=== PATIENT | male | born 1985 | race Caucasian/White ===

== ENCOUNTER 2017-10-24 20:52 | Emergency (ER) | payer BC, SELFPAY ==
[2017-10-24 20:55] VITALS: BP 157/89; PULSE 83; RESP 17; TEMP 36.8; O2SAT 100; BMI 35.9
--- NOTE | 2017-10-24 21:19 | EKG12_ITS ---
Test Reason : CHEST PAIN Blood Pressure : / mmHG Vent. Rate : 077 BPM Atrial Rate : 077 BPM P-R Int : 146 ms QRS Dur : 092 ms QT Int : 372 ms P-R-T Axes : 150 007 072 degrees QTc Int : 420 ms Unusual P axis, possible ectopic atrial rhythm Low voltage QRS (limb leads) Poor R wave progression Abnormal ECG Confirmed by DIMAS PATEL, NGOZI ([id number]), desk editor SELIN TOTH ([id number]) on 10/28/2017 2:07:30 PM Referred By: BREANNE Confirmed By:NGOZI COCHRAN MD
--- NOTE | 2017-10-24 21:19 | RAD_ITS ---
STUDY: X-RAY CHEST REASON FOR EXAM: Male, 32 years old. Chest pain TECHNIQUE: Single AP portable view of the chest. COMPARISON: None. FINDINGS: clinical research monitor leads are present. The lungs are clear and expanded. There is no demonstrated pleural abnormality. Normal size heart. Normal mediastinum and bryan. Normal visualized pulmonary arteries. Normal visualized aortic arch and descending thoracic aorta. Normal visualized thoracic spine. Normal visualized ribs, clavicles, and shoulders. There is no demonstrated abnormality of the visualized soft tissue structures of the upper abdomen. RAD/Chest 1 View (Portable) IMPRESSION: Normal x-ray examination of the chest. Electronically Signed: Jesus Elizabeth MD at 21:59 EDT , Service support ,
--- NOTE | 2017-10-24 21:24 | ED.RN ---
NO OLD EKG'S IN MUSE
[2017-10-24] MEDS: Aspirin 81 MG TAB.CHEW 324 MG PO (21:33)
[2017-10-24 21:44] VITALS: BP 128/76; PULSE 81; RESP 14; O2SAT 100
[2017-10-24 22:03] LABS: Absolute Lymphocyte Count 2.02 X10^3/ul (0.83-4.51); Absolute Neutrophil Count 4.1 X10^3/uL (2.0-7.7); Basophil# 0.01 X10^3/uL; Basophil% 0.2 % (0-1); Eosinophil# 0.12 X10^3/uL; Eosinophils% 1.8 % (0-5); Hematocrit 48.9 % (40-54); Hemoglobin 16.9 g/dl (13.0-16.5); Lymphocyte # 2.02 X10^3/ul (4.0); Lymphocyte % 30.8 % (19-41); Mean Corp Hgb Conc 34.6 g/gl (32-36); Mean Corpuscular Hgb 29.1 pg (27.0-32.0); Mean Corpuscular Volume 84.3 fL (80-94); Mean Platelet Vol. 9.4 fl (6.2-12.0); Monocyte# 0.33 X10^3/uL; Neutrophil # 4.08 X10^3/uL (2.7-7.7); Neutrophil % 62.2 % (47-70); POSITIVE COUNT NO; POSITIVE DIFFERENTIAL NO; POSITIVE MORPHOLOGY NO; Platelet Count 230 K/mm3 (150-450); RBC Distribution Width CV 13.2 % (11.6-14.6); RBC Distribution Width SD 39.9 fl (35.1-43.9); White Blood Count 6.6 K/mm3 (4.4-11.0)
[2017-10-24 22:15] LABS: Anion Gap 5 (5-15); BUN 12 mg/dL (7-18); BUN/Creat Ratio 11.3 RATIO (10-20); Calcium,Total 9.7 mg/dL (8.5-10.1); Chloride 104 mmol/L (98-107); Creatinine, Serum 1.06 mg/dL (0.70-1.30); EST Glomerular Filtration Rate 86 mL/min (>60); Est Glom Filt Rate - Afr Amer 104 mL/min (>60); Estimated Creatinine Clearance 107.54 ml/min; Glucose 100 mg/dL (74-106); Potassium 3.5 mmol/L (3.5-5.1); Sodium Level 140 mmol/L (136-145)
[2017-10-24 22:20] LABS: D-Dimer Quantitative (DVT/PE) < 0.27 FEU/ug/m (0.27-0.49)
[2017-10-24 22:43] VITALS: BP 130/77
--- NOTE | 2017-10-24 23:38 | ED.VISSUMM ---
- ER Visit Summary Date of Service: 10/24/17 Chief Complaint: Chest pain History of Present Illness: The patient is a 32 M presenting with chest pain which started around 6:00 PM. Patient was at work when this started. He denies shortness of breath. He had associated nausea. He states the pain lasted approximately 10 minutes. He denies any recent travel or surgeries. He has a grandfather who had a heart attack in his 50s. He has a history of hypertension. No other coronary artery disease risk factors. No PE/DVT risk factors. He is not a smoker. He is pain-free on arrival to the ED. Physical Examination: Vitals are stable. Patient is afebrile. Alert no acute distress. HEENT exam is unremarkable. Neck is supple. Lungs are clear and equal bilaterally. Heart is regular rate and rhythm. Abdomen is soft nontender nondistended. Extremities are unremarkable. Skin is warm and dry. No focal neurologic deficit. Remainder of exam is unremarkable. Emergency Department Course and Treatment: Patient was given aspirin on arrival. EKG shows atrial rhythm rate is 77 with no acute ischemic changes. Chest x-ray shows no acute process. CBC, chemistries are unremarkable. D-dimer is negative. Troponin is negative. Repeat EKG is sinus rate of 69 with no acute ischemic changes. Patient remains pain-free in the emergency department. Delta troponin will be obtained and checked out to the oncoming physician. Disposition: Pending delta troponin Impression: Chest pain This note was generated with [employer] dictation software. It may contain incorrect words, spelling, and punctuation that were not noted in review of the chart prior to signing ED Disposition - Plan for ED Patient: Chief Complaint: Chest Pain Instructions: ED Chest Pain Atypical Unkn Cause Referrals: Jef Barragan MD [STAFF PHYSICIAN] - Care Physician,No Primary [Primary Care Provider] -
--- NOTE | 2017-10-24 23:41 | EKG12_ITS ---
Test Reason : REPEAT CP Blood Pressure : / mmHG Vent. Rate : 069 BPM Atrial Rate : 069 BPM P-R Int : 154 ms QRS Dur : 090 ms QT Int : 388 ms P-R-T Axes : 068 026 034 degrees QTc Int : 415 ms Sinus rhythm with occasional Premature ventricular complexes Otherwise normal ECG Confirmed by DIMAS PATEL, NGOZI ([id number]), multimedia editor SELIN TOTH ([id number]) on 10/28/2017 2:16:26 PM Referred By: DESIRE Confirmed By:NGOZI COCHRAN MD
--- NOTE | 2017-10-24 23:43 | ED.DCSUM_ITS ---
- ER Visit Summary Date of Service: 10/24/17 Chief Complaint: Chest pain History of Present Illness: The patient is a 32 M presenting with chest pain which started around 6:00 PM. Patient was at work when this started. He denies shortness of breath. He had associated nausea. He states the pain lasted approximately 10 minutes. He denies any recent travel or surgeries. He has a grandfather who had a heart attack in his 50s. He has a history of hypertension. No other coronary artery disease risk factors. No PE/DVT risk factors. He is not a smoker. He is pain-free on arrival to the ED. Physical Examination: Vitals are stable. Patient is afebrile. Alert no acute distress. HEENT exam is unremarkable. Neck is supple. Lungs are clear and equal bilaterally. Heart is regular rate and rhythm. Abdomen is soft nontender nondistended. Extremities are unremarkable. Skin is warm and dry. No focal neurologic deficit. Remainder of exam is unremarkable. Emergency Department Course and Treatment: Patient was given aspirin on arrival. EKG shows atrial rhythm rate is 77 with no acute ischemic changes. Chest x-ray shows no acute process. CBC, chemistries are unremarkable. D- dimer is negative. Troponin is negative. Repeat EKG is sinus rate of 69 with no acute ischemic changes. Patient remains pain-free in the emergency department. Delta troponin will be obtained and checked out to the oncoming physician. Disposition: Pending delta troponin Impression: Chest pain This note was generated with [employer] dictation software. It may contain incorrect words, spelling, and punctuation that were not noted in review of the chart prior to signing ED Disposition - Plan for ED Patient: Chief Complaint: Chest Pain Instructions: ED Chest Pain Atypical Unkn Cause Referrals: Jef Barragan MD [STAFF PHYSICIAN] - Care Physician,No Primary [Primary Care Provider] -
--- NOTE | 2017-10-24 23:47 | ED.DEP ---
ED Disposition - Plan for ED Patient: Chief Complaint: Chest Pain Instructions: ED Chest Pain Atypical Unkn Cause Referrals: Care Physician,No Primary [Primary Care Provider] - Jef Barragan MD [STAFF PHYSICIAN] -
[2017-10-24 23:53] VITALS: BP 132/84; PULSE 74; RESP 16; O2SAT 97
[2017-10-25 00:16] VITALS: BP 125/82; PULSE 69; RESP 17; O2SAT 99
[2017-10-25 01:00] VITALS: BP 131/82; PULSE 68; RESP 18; O2SAT 98
[2017-10-25 01:47] VITALS: BP 125/87; PULSE 68; RESP 15; O2SAT 98
== END 2017-10-25 01:54 | disposition home or self-care (01) ==
PROVIDERS: Emergency Medicine; Emergency Provider Emergency Medicine
DX: R07.9 Chest pain, unspecified (principal); R11.0 Nausea; I10 Essential (primary) hypertension
CPT/HCPCS: 71045; 80048; 84484; 85025; 85379; 93005; 99285

== ENCOUNTER → 2017-11-15 10:28 | Outpatient (CLI) | payer BC, SELFPAY ==
[2017-11-15 11:41] LABS: Absolute Lymphocyte Count 1.73 X10^3/ul (0.83-4.51); Absolute Neutrophil Count 2.4 X10^3/uL (2.0-7.7); Basophil# 0.03 X10^3/uL; Basophil% 0.6 % (0-1); Eosinophils% 4.2 % (0-5); Hematocrit 44.3 % (40-54); Hemoglobin 15.8 g/dl (13.0-16.5); Lymphocyte # 1.73 X10^3/ul (4.0); Lymphocyte % 36.4 % (19-41); Mean Corp Hgb Conc 35.7 g/gl (32-36); Mean Corpuscular Hgb 29.5 pg (27.0-32.0); Mean Corpuscular Volume 82.6 fL (80-94); Mean Platelet Vol. 9.3 fl (6.2-12.0); Monocyte# 0.36 X10^3/uL; Monocyte% 7.6 % (0-10); Neutrophil # 2.42 X10^3/uL (2.7-7.7); Platelet Count 225 K/mm3 (150-450); RBC Distribution Width CV 13.1 % (11.6-14.6); RBC Distribution Width SD 39.8 fl (35.1-43.9); Red Blood Count 5.36 M/mm3 (4.6-6.2); White Blood Count 4.8 K/mm3 (4.4-11.0)
[2017-11-15 11:42] LABS: POSITIVE COUNT NO; POSITIVE DIFFERENTIAL NO; POSITIVE MORPHOLOGY NO
[2017-11-15 12:32] LABS: ALB/GLOB Ratio 1.2 RATIO (0.9-2.4); AST(SGOT) 28 U/L (15-37); Alanine Aminotransfer ALT/SGPT 42 U/L (16-61); Albumin, Serum 4.2 g/dL (3.2-5.0); Alkaline Phosphatase 75 U/L (45-117); Anion Gap 13 (5-15); BUN 14 mg/dL (7-18); BUN/Creat Ratio 11.9 RATIO (10-20); Calcium,Total 9.1 mg/dL (8.5-10.1); Chloride 103 mmol/L (98-107); Cholesterol 134 mg/dL (200); Creatinine, Serum 1.18 mg/dL (0.70-1.30); EST Glomerular Filtration Rate 76 mL/min (>60); Est Glom Filt Rate - Afr Amer 92 mL/min (>60); Globulin 3.4 g/dL (2.2-4.2); Glucose 106 mg/dL (74-106); High Density Lipoprotein 36 mg/dL; Potassium 3.9 mmol/L (3.5-5.1); Protein, Total 7.6 g/dL (6.4-8.2); Sodium Level 142 mmol/L (136-145); Triglycerides 55 mg/dL; Very Low Density Lipoprotein 11 mg/dL (5-40)
[2017-11-15 14:07] LABS: Hemoglobin A1c 5.3 % (4.2-6.3)
== END ==
PROVIDERS: Family Provider Family Medicine; PCP Family Medicine; Visit Provider Family Medicine
DX: R07.9 Chest pain, unspecified (principal); I10 Essential (primary) hypertension; R73.9 Hyperglycemia, unspecified
CPT/HCPCS: 36415; 80053; 80061; 83036; 85025; 93017; 93350; Q9957; A4216; C8928

== ENCOUNTER → 2018-11-20 09:14 | Outpatient (CLI) | payer BC, SELFPAY ==
[2018-11-20 12:20] LABS: Absolute Lymphocyte Count 1.65 X10^3/uL (0.83-4.51); Absolute Neutrophil Count 2.5 X10^3/uL (2.0-7.7); Basophil# 0.03 X10^3/uL; Basophil% 0.6 % (0-1); Eosinophil# 0.17 X10^3/uL; Eosinophils% 3.6 % (0-5); Hematocrit 49.9 % (40-54); Hemoglobin 16.9 g/dL (13.0-16.5); Lymphocyte # 1.65 X10^3/ul (4.0); Mean Corp Hgb Conc 33.9 g/dL (32-36); Mean Corpuscular Hgb 29.2 pg (27.0-32.0); Mean Corpuscular Volume 86.2 fL (80-94); Mean Platelet Vol. 9.9 fl (6.2-12.0); Monocyte# 0.39 X10^3/uL; Monocyte% 8.3 % (0-10); NRBC Flagged by Analyzer 0 % (0-5); Neutrophil # 2.47 X10^3/uL (2.7-7.7); Neutrophil % 52.3 % (47-70); Platelet Count 245 K/mm3 (150-450); RBC Distribution Width CV 12.5 % (11.6-14.6); Red Blood Count 5.79 M/mm3 (4.6-6.2); White Blood Count 4.7 K/mm3 (4.4-11.0)
[2018-11-20 12:47] LABS: Vitamin D,25 Hydroxy 20.4 ng/mL (29.95-100.01)
[2018-11-20 13:04] LABS: ALB/GLOB Ratio 1.2 RATIO (0.9-2.4); AST(SGOT) 31 U/L (15-37); Alanine Aminotransfer ALT/SGPT 53 U/L (16-61); Albumin, Serum 4.3 g/dL (3.2-5.0); Alkaline Phosphatase 72 U/L (45-117); Anion Gap 8 (5-15); BUN 12 mg/dL (7-18); BUN/Creat Ratio 11.8 RATIO (10-20); Calcium,Total 9.4 mg/dL (8.5-10.1); Chloride 105 mmol/L (98-107); Cholesterol 150 mg/dL (200); Creatinine, Serum 1.02 mg/dL (0.70-1.30); EST Glomerular Filtration Rate 90 mL/min (>60); Est Glom Filt Rate - Afr Amer 108 mL/min (>60); Globulin 3.7 g/dL (2.2-4.2); Glucose 95 mg/dL (74-106); High Density Lipoprotein 38 mg/dL; Potassium 3.8 mmol/L (3.5-5.1); Sodium Level 142 mmol/L (136-145); Thyroid Stim Hormone (TSH) 1.02 uIU/mL (0.358-3.74); Triglycerides 60 mg/dL; Very Low Density Lipoprotein 12 mg/dL (5-40)
[2018-11-22 14:08] LABS: Testosterone, Free 11.09 ng/dL (5.00-21.00)
[2018-11-23 09:15] LABS: Testosterone, % Free 3.08 % (1.50-4.20); Testosterone, Total 360 ng/dL (264-916)
== END ==
PROVIDERS: Family Provider Family Medicine; PCP Family Medicine; Visit Provider Family Medicine
DX: Z00.00 Encounter for general adult medical examination without abnormal findings (principal); R53.83 Other fatigue
CPT/HCPCS: 36415; 80053; 80061; 82306; 84402; 84403; 84443; 85025

== ENCOUNTER 2020-02-02 18:24 | Emergency (ER) | payer BC, SELFPAY ==
[2020-02-02 18:25] VITALS: BP 151/99; PULSE 80; RESP 16; TEMP 36.3; O2SAT 99; BMI 35.6
--- NOTE | 2020-02-02 19:51 | EKG12_ITS ---
Test Reason : CP Blood Pressure : / mmHG Vent. Rate : 074 BPM Atrial Rate : 074 BPM P-R Int : 154 ms QRS Dur : 096 ms QT Int : 380 ms P-R-T Axes : 079 047 054 degrees QTc Int : 421 ms Normal sinus rhythm Normal ECG Confirmed by PEGGY PATEL, BRIANA ([id number]), film editor supervisor ANGEL GRIER ([id number]) on 02/08/2020 1:01:04 PM Referred By: IRIS Confirmed By:POONAM WOODS MD
--- NOTE | 2020-02-02 19:52 | ED.VISSUMM ---
- ER Visit Summary Date of Service: 02/02/20 Chief Complaint: Shortness of breath History of Present Illness: The patient is a 35 M past medical history of hypertension is on no medications. 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 He states that he is just felt mildly short of breath and general weakness. That began today. Denies fever chills. Denies significant cough. No hemoptysis. No significant chest pain. No black or bloody stools. No history of anemia or GI bleed. Physical Examination: Well-appearing young male vital signs stable afebrile. Pulse ox 99% on room air no signs hypoxia. He does not look septic or toxic. He is in no acute distress. H EENT exam unremarkable. Neck nontender. No lymphadenopathy. Lungs auscultation bilaterally. Heart regular rate and rhythm no murmur rate about 80. Abdomen soft nontender normal bowel sounds no peritoneal signs. Remedies moves all 4. Calves nontender without edema or cords. Neurologically is awake alert with no focal motor deficits. Test Results: X-ray portable 1 view read by myself and the radiologist shows no acute abnormality. Normal cardiac silhouette and mediastinum. EKG normal sinus rhythm rate of 74 no acute change from prior EKG in 2018. Covid send out test results pending. Emergency Department Course and Treatment: Patient get chest x-ray to Covid test. Otherwise exam unremarkable. Clinically my suspicion for him at this time is actually low for Covid he obviously has risk factors and exposure but he does not seem ill he had no fever and he clinically looks well. Repeat exam patient is doing well at 2142 no change. He and I went over his test results. Treatment Plan: Follow-up with outpatient Covid test. Follow-up with his primary care physician. Return if worse. Disposition: Discharge Impression: Viral syndrome Rule out Covid This note was generated with [employer] dictation software. It may contain incorrect words, spelling, and punctuation that were not noted in review of the chart prior to signing ED Disposition - Plan for ED Patient: Referrals: Jorge Trejo DO [Primary Care Provider] -
[2020-02-02 20:10] VITALS: BP 152/90; PULSE 78; RESP 14; TEMP 37; O2SAT 98; O2SAT 99
--- NOTE | 2020-02-02 20:20 | RAD_ITS ---
STUDY: X-RAY CHEST REASON FOR EXAM: Male, 35 years old. Chest pain. Shortness of breath with nausea beginning this morning. Exposed to coworker with COVID 19 2 weeks ago. TECHNIQUE: Single AP portable view of the chest. COMPARISON: 10/24/2017. FINDINGS: The lungs are clear and expanded. There is no demonstrated pleural abnormality. Normal size heart. Normal mediastinum and bryan. Normal visualized pulmonary arteries. Normal visualized aortic arch and descending thoracic aorta. Normal visualized thoracic spine. Normal visualized ribs, clavicles, and shoulders. There is no demonstrated abnormality of the visualized soft tissue structures of the upper abdomen. RAD/Chest 1 View (Portable) IMPRESSION: No acute cardiopulmonary disease or major interval change. Electronically Signed: Ken Sims DO at 20:46 EST Tel [phone], Service support ,
[2020-02-02 21:11] VITALS: BP 130/71; PULSE 65; RESP 15; TEMP 37; O2SAT 99
--- NOTE | 2020-02-02 21:42 | ED.DEP ---
ED Disposition - Plan for ED Patient: Disposition: Home or Assisted Living Instructions: ED Viral Syndrome Referrals: Jorge Trejo, [Primary Care Provider] - 1 Week if not improving Additional Instructions: Plenty of fluids and rest. State will notify you of your Covid results. Return if you are feeling a lot worse otherwise follow-up your primary care physician if not improving. Your EKG and chest x-ray tonight were both normal.
[2020-02-02 22:11] VITALS: BP 125/79; PULSE 65; RESP 15; O2SAT 98
== END 2020-02-02 22:13 | disposition home or self-care (01) ==
PROVIDERS: Emergency Provider Emergency Medicine; PCP Family Medicine
DX: B34.9 Viral infection, unspecified (principal); R06.02 Shortness of breath; R53.1 Weakness; I10 Essential (primary) hypertension
CPT/HCPCS: 71045; 87635; 93005; 99282; U0003

== ENCOUNTER → 2020-08-11 16:41 | Outpatient (CLI) | payer OTHER, SELFPAY ==
[2020-08-11 17:31] LABS: Absolute Lymphocyte Count 1.94 X10^3/uL (0.83-4.51); Absolute Neutrophil Count 4.4 X10^3/uL (2.0-7.7); Basophil# 0.04 X10^3/uL; Basophil% 0.6 % (0-1); Eosinophil# 0.09 X10^3/uL; Eosinophils% 1.3 % (0-5); Hematocrit 47.9 % (40-54); Hemoglobin 16.4 g/dL (13.0-16.5); Lymphocyte # 1.94 X10^3/ul (0.83-4.51); Lymphocyte % 28.1 % (19-41); Mean Corp Hgb Conc 34.2 g/dL (32-36); Mean Corpuscular Hgb 28.8 pg (27.0-32.0); Mean Platelet Vol. 9.5 fl (6.2-12.0); Monocyte# 0.43 X10^3/uL; Monocyte% 6.2 % (0-10); NRBC Flagged by Analyzer 0 % (0-5); Neutrophil # 4.39 X10^3/uL (2.7-7.7); Neutrophil % 63.7 % (47-70); Platelet Count 274 K/mm3 (150-450); RBC Distribution Width CV 12.7 % (11.6-14.6); RBC Distribution Width SD 38.5 fl (35.1-43.9); White Blood Count 6.9 K/mm3 (4.4-11.0)
[2020-08-11 17:56] LABS: Vitamin D,25 Hydroxy 24.2 ng/mL
[2020-08-11 18:02] LABS: ALB/GLOB Ratio 1.2 RATIO (0.9-2.4); AST(SGOT) 25 U/L (15-37); Alanine Aminotransfer ALT/SGPT 47 U/L (16-61); Albumin, Serum 4.4 g/dL (3.2-5.0); Alkaline Phosphatase 70 U/L (45-117); Anion Gap 5 (5-15); BUN 15 mg/dL (7-18); BUN/Creat Ratio 15.6 RATIO (10-20); Calcium,Total 9.7 mg/dL (8.5-10.1); Chloride 105 mmol/L (98-107); Creatinine, Serum 0.96 mg/dL (0.70-1.30); EST Glomerular Filtration Rate 95 mL/min (>60); Est Glom Filt Rate - Afr Amer 115 mL/min (>60); Globulin 3.6 g/dL (2.2-4.2); Glucose 88 mg/dL (74-106); Potassium 3.7 mmol/L (3.5-5.1); Sodium Level 139 mmol/L (136-145); Thyroid Stim Hormone (TSH) 0.77 uIU/mL (0.358-3.74)
== END ==
PROVIDERS: PCP Family Medicine; Referring Provider Family Medicine; Visit Provider Family Medicine
DX: R07.89 Other chest pain (principal); R06.00 Dyspnea, unspecified; R53.83 Other fatigue; E55.9 Vitamin D deficiency, unspecified
CPT/HCPCS: 36415; 80053; 82306; 84443; 84484; 85025

== ENCOUNTER → 2020-08-29 12:14 | Outpatient (CLI) | payer OTHER, SELFPAY | PROVIDERS: PCP Family Medicine; Referring Provider Family Medicine; Visit Provider Family Medicine | DX: G47.10 Hypersomnia, unspecified (principal); R53.83 Other fatigue; R06.83 Snoring | CPT/HCPCS: 95806 ==

== ENCOUNTER → 2020-09-15 20:04 | Outpatient (CLI) | payer OTHER, SELFPAY | PROVIDERS: PCP Family Medicine; Referring Provider Family Medicine; Visit Provider Family Medicine | DX: G47.10 Hypersomnia, unspecified (principal) | CPT/HCPCS: 95810 ==

== ENCOUNTER → 2020-12-25 15:28 | Outpatient (CLI) | payer OTHER, SELFPAY | PROVIDERS: PCP Family Medicine; Referring Provider Physician Assistant; Visit Provider Physician Assistant | DX: R09.81 Nasal congestion (principal) | CPT/HCPCS: 87635; U0005; U0003 ==

== ENCOUNTER 2021-01-04 02:25 | Emergency (ER) | payer OTHER, SELFPAY ==
[2021-01-04 02:26] VITALS: BP 171/109; PULSE 105; RESP 18; TEMP 36.8; O2SAT 100; BMI 36.9
[2021-01-04] MEDS: Orphenadrine 60 MG/2 ML Ampul IM (02:56)
[2021-01-04] MEDS: Ketorolac 30 MG/ML Syringe IM (02:56)
--- NOTE | 2021-01-04 02:57 | ED.VIS.BACK ---
HPI History of Present Illness Chief Complaint: Back Narrative Narrative: Patient is a 35-year-old male who states he works a job at the [employer] where he does a lot of lifting pulling and pushing. He denies any excessive activity recently or any direct trauma. He states that over the past three days he is had increasing back pain greatest on the left worsens of motion. He denies any loss of bowel or bladder control or IV drug use. He denies any hematuria or dysuria. He states that the pain is getting to the point where he cannot perform his job and secondary to this comes in for evaluation [facility] Medical History Chest tightness Dyspnea Fatigue History of anxiety History of hypertension Hypersomnia Medical History no medical history Home Medications hydrocodone-acetaminophen 1 tab PO Q6H PRN 3 Days #12 tab 01/04/21 [Rx Last Taken Unknown] ibuprofen 600 mg PO 4X/DAY PRN PRN #40 tab 01/04/21 [Rx Last Taken Unknown] methocarbamol 500 mg PO 4X/DAY PRN #56 tab 01/04/21 [Rx Last Taken Unknown] multivitamin 1 tab PO DAILY 01/04/21 [History Last Taken Unknown] Allergy/AdvReac Type Severity Reaction Status Date / Time No Known Allergies Allergy Verified 01/04/21 02:26 Family History Grandmother Breast cancer Father Hypertension Anxiety Grandfather Cancer Social History Smoking Status: Never smoker alcohol intake: never what type of physical activity do you participate in: walking frequency: daily ROS ROS ED Constitutional Constitutional ED: Denies chills or fever(s) ENT ENT ED: Denies sore throat Cardiovascular Cardiovascular: Denies chest pain Respiratory/Chest Respiratory/Chest: Denies cough or dyspnea Gastrointestinal Gastrointestinal: Denies abdominal pain, diarrhea, nausea or vomiting Genitourinary Genitourinary ED: Denies dysuria or hematuria Musculoskeletal Musculoskeletal: Reports back pain; Denies myalgias Integumentary Denies rash Neurologic Neurologic: Denies headache(s) Hematologic/Lymphatic Hematologic/Lymphatic: Denies easy bleeding or easy bruising EXAM Physical Exam Const Vital Signs: 01/04/21 02:26 Temperature 98.2 F Temperature Source Temporal Pulse Rate 105 H Respiratory Rate 18 Blood Pressure 171/109 H Blood Pressure Mean 129 Pulse Ox 100 Oxygen Delivery Method Room Air Positive well nourished and well developed General Appearance ED: well developed Eyes PERRL and EOMs intact bilaterally Neck supple Resp normal respiratory effort and clear to auscultation bilaterally Cardio regular rate and regular rhythm GI normal to inspection, nondistended, normoactive bowel sounds, soft to palpation, non-tender, non-distended and no masses Auscultation: normoactive bowel sounds Palpation: soft Back/Spine Back/Spine Narrative: Nobody to form your step off of the thoracic and lumbar spine but there is mild lower lumbar pain with palpation. No saddle anesthesia. Negative straight leg raise. No clonus of Babinski. Patellar reflexes are +2/4 bilaterally. Patient does have increased pain with extension and rotation. There is also mild spasm and pain noted along the left paralumbar and piriformis muscle belly regions. No overlying soft tissue changes to suggest trauma or infection Extremity normal to inspection Neuro oriented x3, CN's II-XII intact bilaterally and no sensory deficits noted Sensorium / Orientation: alert Psych mental status grossly normal Skin no rashes or lesions noted MDM MDM MDM Narrative Medical decision making narrative: Patient presented to the ER hypertensive and slightly tachycardic but I felt this was most likely secondary to his pain. He had no risk factors or exam findings concerning for cauda equina or epidural abscess. 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 As he did report pain was midline elected perform an x-ray which showed no acute finding. Urine samples also obtained which does show 10 occult blood but no red blood cells on the microscopic. Therefore I do not believe this is secondary to a possible kidney stone especially with his physical exam. Patient was given Toradol and reflecting the report moderate improvement of the symptoms. Therefore this time will be placed on symptomatic medications and is safe for discharge Lab Data Attestation: I reviewed the patient's lab results. Labs: Laboratory Results - last 24 hr 01/04/21 04:00 Urine Color Yellow Urine Clarity Clear Urine pH 7.0 Ur Specific [place] 1.010 Urine Protein Negative Urine Glucose (UA) Normal Urine Ketones Negative Urine Occult Blood 10 H Urine Nitrite Negative Urine Bilirubin Negative Urine Urobilinogen Normal Ur Leukocyte Esterase Negative Urine RBC 0-5 SEEN Urine WBC 0 SEEN Ur Squamous Epith Cells 0 SEEN Urine Bacteria 0 SEEN Urine Mucus 0 SEEN Radiography Diagnostic Testing: Clinical Impression(s) from Imaging Studies Lumbar Spine X-Ray 01/04/21 03:21 IMPRESSION: Normal x-ray examination of the lumbar spine. Electronically Signed: Dante Wolff DO at 4:32 EDT Tel , Service support , Discharge Plan Triage Chief Complaint: Back ED Provider: Ronak Golden Dx/Rx/DC Orders Clinical Impression: Acute lumbosacral myofascial strain Instructions: ED Back Sprain/Strain Prescriptions: New hydrocodone-acetaminophen 5-325 mg tablet 1 tab PO Q6H PRN (Reason: pain) 3 Days Qty: 12 RF: 0 methocarbamol 500 mg tablet 500 mg PO 4X/DAY PRN (Reason: Muscle pain/spasm) Qty: 56 RF: 0 ibuprofen 600 mg tablet 600 mg PO 4X/DAY PRN PRN (Reason: pain) Qty: 40 RF: 0 No Action multivitamin Tablet 1 tab PO DAILY RF: 0 Primary Care Provider: Jorge Trejo Referrals: Jorge Trejo DO [Primary Care Provider] - Disposition Disposition: Home, Self Care
--- NOTE | 2021-01-04 03:21 | RAD_ITS ---
STUDY: X-RAY - LUMBAR SPINE REASON FOR EXAM: Male, 35 years old. back pain TECHNIQUE: 3 view(s) of the lumbar spine were obtained. COMPARISON: None FINDINGS: Normal lumbar lordosis. There is no substantial scoliosis. There is a normal alignment of the vertebrae. Normal vertebral bodies and endplates. Normal disc space heights. The soft tissue structures are unremarkable. RAD/Lumbar Spine 2 or 3 Views IMPRESSION: Normal x-ray examination of the lumbar spine. Electronically Signed: Dante Wolff DO at 4:32 EDT Tel , Service support ,
[2021-01-04 04:08] LABS: Bacteria 0 SEEN /hpf (None Seen); Mucous, Urine 0 SEEN /hpf (<or=2+); Squamous Epithelial Cells - UA 0 SEEN /hpf (0-5); White Blood Cells 0 SEEN /hpf (0-5)
[2021-01-04 04:12] LABS: Color, Urine Yellow (Yellow); Glucose, Dipstick Normal (Normal); Ketone-Dipstick Negative (Negative); Leukocyte Esterase-Dipstick Negative /ul (Negative); Nitrite-Dipstick Negative (Negative); Occult Blood-Urine 10 /ul (Negative); Protein-Dipstick Negative (Negative); Urine Bilirubin Dipstick Negative (Negative); Urine Clarity Clear (Clear); Urine Urobilinogen Normal (Normal)
[2021-01-04 04:23] LABS: Red Blood Cells-Urine 0-5 SEEN /hpf (0-5)
[2021-01-04 04:54] VITALS: BP 129/78; PULSE 81; RESP 20; O2SAT 97
--- NOTE | 2021-01-04 04:54 | ED.RN ---
THIS NURSE REVIEWED D/C INSTRUCTIONS WITH PT. PT VERBALIZED UNDERSTANDING OF INSTRUCTIONS. PT DENIES FURTHER NEEDS OR QUESTIONS AT THIS TIME.
== END 2021-01-04 04:55 | disposition home or self-care (01) ==
PROVIDERS: Emergency Provider Emergency Medicine; PCP Family Medicine
DX: S39.012A Strain of muscle, fascia and tendon of lower back, initial encounter (principal); X58.XXXA Exposure to other specified factors, initial encounter; G47.10 Hypersomnia, unspecified; I10 Essential (primary) hypertension
CPT/HCPCS: 72100; 81001; 96372; 99282

== ENCOUNTER → 2021-01-13 | Outpatient (CLI) | payer OTHER, SELFPAY | END | disposition home or self-care (01) | LOC: LABSPEC 15:08 | PROVIDERS: PCP Family Medicine; Visit Provider Family Medicine | DX: Z20.828 Contact with and (suspected) exposure to other viral communicable diseases (principal) | CPT/HCPCS: 87635; U0005; U0003 ==

== ENCOUNTER 2021-02-28 12:00 | Outpatient (RCR) | payer OTHER, SELFPAY ==
--- NOTE | 2021-01-09 19:01 | HP.PTEVAL ---
Patient's Visit Information ELIJAH DONALDSON is a 35 year old M referred to Physical Therapy by CANDE Carr with a diagnosis of STRAIN OF MUSCLE ,FASCIA AND TENDON OF LOWE BACK ,INTIAL ECOUNTER. Date of Evaluation: 01/09/21 Physical Therapist: Wes Parham, PT, Cert MDT, OCS - Visit Plan Frequency: 2x /Week Duration: 4 Weeks Plan: PT INTERVETIONS FRANCOIS EX'S , ANR STRETCHING,PROGRESS TO DLS ,POSTURAL EX'S AND MODALTIES - Subjective This 35 y/o male presents to physical therapy with low back pain. Patient has had insidious of back pain ~ one week . Patient went to ER after sitting at work unable to get up. Did x-rays DDD. ,tried ibuprofrin and muscle relaxer . [facility] . Patient seen chiropractor ,DR Danielle. Location of pain lumbar center of spine, occasional radiates to hips. Aggravating factors siting, bending, driving, lifting. Alleviating factors laying prone. Denies paresthesia/tingling. Bowel/bladder-. Coughing/sneezing +. No abnormal night pain. Sleeping good at night. Patient has had no prior trauma. Patient pain affects QOL and function. Patient returns to work. VOCATION: [employer]. SOCIAL: - Pain Bilateral Back Pain Intensity (Out of 10): 3 Pain Intensity Range: 10 - Objective POSTURE: reduce lordosis. GAIT: reciprocal pattern guarded position. NEURO: denies paresthesia/tingling ,reflexes L3-4,L4-5,L5-S1 2/3,+ANR. SYMMTRIES: align. PALPATION: unremarkable. MMT: quads 4-5/ due to + ANR /hams 4/5,hip 4/5,ankjle 4/5,GTE 4/5. FLEXABLITY: mod tight - Special Tests L/S Slump test left side: Positive L/S Slump test right side: Positive L/S Left Straight Leg Raise: Positive L/S Right Straight Leg Raise: Positive Lumbar Standing: Flexion - Mechanical Response: No effect Lumbar Standing: Flexion - Symptoms During Testing: Increases Lumbar Standing: Flexion - Symptoms After Testing: Worse Lumbar Standing: Extension - Mechanical Response: No effect Lumbar Standing: Extension - Symptoms During Testing: Decreases Lumbar Standing: Extension - Symptoms After Testing: No better Lumbar Standing: Right Side Glides - Mechanical Response: No effect Lumbar Standing: Right Side [place] - Symptoms During Testing: No effect Lumbar Standing: Right Side [place] - Symptoms After Testing: No effect Lumbar Standing: Left Side [place] - Mechanical Response: No effect Lumbar Standing: Left Side [place] - Symptoms During Testing: No effect Lumbar Standing: Left Side [place] - Symptoms After Testing: No effect Lumbar Lying: Flexion - Mechanical Response: No effect Lumbar Lying: Flexion - Symptoms During Testing: Increases Lumbar Lying: Flexion - Symptoms After Testing: Worse Lumbar Lying: Extension - Mechanical Response: Increases motion Lumbar Lying: Extension - Symptoms During Testing: Decreases Lumbar Lying: Extension - Symptoms After Testing: Better - Balance/Special Test Scores Oswestry Low Back Score: 24 - Goals Goal 1:: I with HEP for low back Goal Time Frame: 4-6 Weeks Goal 2:: Patient to demonstrate improvement of posture/body mechanics 75% Goal Time Frame: 4-6 Weeks Goal 3:: Patient to demonstrate 50 % improvement with decrease lumbar pain Goal Time Frame: 4-6 Weeks Goal 4:: Patient to improve lumbar ROM for function of recovery . Goal Time Frame: 4-6 Weeks Goal 5:: Patient to improve back owestry score 5 points or > to improve QOL and function Goal Time Frame: 4-6 Weeks - Rehabilitation Potential Physical Therapy Diagnosis: This patient appears to have lumbar derangement with disc with symptoms worse with flexion, sitting,+ ANR ,SLR ,improve with extension thus ,pain is affected by motion testing, improved with correction of posture thus will benefit from skilled PT Rehabilitation Potential: Good - Anticipated Interventions Patient/Client Instruction: Educate patient on: Condition, Plan of Care For the Purpose of:: To decrease pain, To improve muscle performance and motor function, To improve ability to perform ADL's, To increase tolerance to activity/condition/position, To improve performance and independence with ADL's, To improve ability of physical actions for home/community/work/leisure, To improve health of tissue, To decrease soft tissue restriction, To increase flexibility/ROM, To reduce risk of recurrence Therapeutic Exercise to Include: Strength training, Power training, Body mechanics, Postural training, Flexibilty training, Dynamic Lumbar Stabilization For the Purpose of:: To decrease pain, To increase ROM, To improve muscle performance and motor function, To improve ability to perform ADL's, To increase tolerance to activity/condition/position, To improve performance and independence with ADL's, To improve ability of physical actions for home/community/work/leisure, To improve health of tissue, To decrease soft tissue restriction, To increase flexibility/ROM, To reduce risk of recurrence, To improve self management Thank you for the opportunity to evaluate your patient. For Medicare and Medicare HMO plans, please review the plan of care and approve it. It will need to be FAXED BACK to us at [phone] for Medicare purposes. For Medicare only, by signing this I certify the plan of care. Please let me know if there are questions or concerns regarding this plan of care. Physician Signature: Date:
--- NOTE | 2021-04-11 10:45 | HP.PT.NRP ---
ELIJAH DONALDSON was seen in my office for initial evaluation on 01/09/21. The following Plan of Care was established for this patient: Initial Frequency: 2x /Week Initial Duration: 4 Weeks Patient/Client Instruction: Educate patient on: Condition, Plan of Care For the Purpose of:: To decrease pain, To improve muscle performance and motor function, To improve ability to perform ADL's, To increase tolerance to activity/condition/position, To improve performance and independence with ADL's, To improve ability of physical actions for home/community/work/leisure, To improve health of tissue, To decrease soft tissue restriction, To increase flexibility/ROM, To reduce risk of recurrence Therapeutic Exercise to Include: Strength training, Power training, Body mechanics, Postural training, Flexibilty training, Dynamic Lumbar Stabilization For the Purpose of:: To decrease pain, To increase ROM, To improve muscle performance and motor function, To improve ability to perform ADL's, To increase tolerance to activity/condition/position, To improve performance and independence with ADL's, To improve ability of physical actions for home/community/work/leisure, To improve health of tissue, To decrease soft tissue restriction, To increase flexibility/ROM, To reduce risk of recurrence, To improve self management This patient was last seen in our office . Pertinent comments regarding their Physical therapy will appear below: Patient was seen for lumbar radiculopathy for Julien ex's, progression DLS ,postural ex's and modalities did help pain sciatica . Patient had MRI showed HNP ,seen DR To . At this point I will be discontinuing this patient from physical therapy. I would be happy to see this patient again in the future if found appropriate by the physician. Thank you! Wes Parham, PT, Cert MDT, OCS Balance/Gait/Functional tests - Balance/Special Test Scores Oswestry Low Back Score: 10
== END 2021-02-28 19:00 | disposition home or self-care (01) ==
LOC: PT 12:00
PROVIDERS: PCP Family Medicine; Referring Provider Physician Assistant; Visit Provider Physician Assistant
DX: S39.012D Strain of muscle, fascia and tendon of lower back, subsequent encounter (principal); X58.XXXD Exposure to other specified factors, subsequent encounter
CPT/HCPCS: 97014; 97035; 97110; 97162; G0283

== ENCOUNTER → 2021-03-22 16:39 | Outpatient (CLI) | payer OTHER, SELFPAY ==
--- NOTE | 2021-03-22 17:30 | MRI_ITS ---
STUDY: MRI LUMBAR SPINE WITHOUT CONTRAST REASON FOR EXAM: Male, 36 years old. LEFT lumbar radiculopathy TECHNIQUE: Standardized fat and water weighted pulse sequences were obtained in the sagittal and axial planes. COMPARISON: 01/04/2021 FINDINGS: Straightening of the normal alignment of the columns of the lumbar spine is visualized. No evidence of spondylolisthesis is seen. The lumbar vertebral bodies demonstrate no evidence of compression deformity, multilevel degenerative endplate changes visualized. No evidence of T2 prolongation is visualized visualized on the STIR sequence to suggest acute fracture, edema or infiltrative process. The cord terminates at the level of the L1-L2 intervertebral disc space, the terminal nerve roots demonstrate no evidence of thickening or clumping to suggest arachnoiditis. Disc desiccation visualized at L4-L5, decreased intervertebral disc height seen at L5-S1. Normal visualized sacral ala. Normal visualized paraspinous soft tissue structures. Limited evaluation of the abdominal soft tissues is unremarkable. L1-2: Normal disc height, hydration and morphology. Normal bilateral facet joints. Normal central canal and bilateral lateral recesses. Normal bilateral intervertebral neural foramina. L2-3: Degenerative disc changes seen, Normal bilateral facet joints. Normal central canal and bilateral lateral recesses. Normal bilateral intervertebral neural foramina. L3-4: Normal disc height, hydration and morphology. Normal bilateral facet joints. Normal central canal and bilateral lateral recesses. Normal bilateral intervertebral neural foramina. L4-5: Degenerative changes with a posterior disc bulge visualized on axial series 5 image 21, mild hypertrophic changes in the facet joints and ligamentum flavum visualized, mild to moderate narrowing of the spinal canal and bilateral neuroforamina is visualized at this level. L5-S1: Degenerative changes with a posterior disc bulge visualized on axial series 5 image 3, mild hypertrophic changes in the facet joints and ligamentum flavum visualized, mild narrowing of the spinal canal, mild to moderate narrowing of the right neural foramina and no significant narrowing of the left neuroforamina seen at this level. MRI/Spine Lumbar (Routine) IMPRESSION: Degenerative changes of the lumbar spine visualized, posterior disc bulges visualized at L5-S1 and L4-L5. Electronically Signed: Shankar Cano MD at 14:41 EST Tel , Service support ,
== END ==
PROVIDERS: PCP Family Medicine; Visit Provider Family Medicine
DX: M54.16 Radiculopathy, lumbar region (principal)
CPT/HCPCS: 72148

== ENCOUNTER 2021-07-31 11:00 | Outpatient (RCR) | payer BC, SELFPAY ==
--- NOTE | 2021-06-27 07:57 | HP.PTEVAL_ITS ---
Patient's Visit Information ELIJAH DONALDSON is a 36 year old M referred to Physical Therapy by DEMAR Enriquez with a diagnosis of B posterior laminectomy L4-S1, B partial facetectomy, and foraminotomies S1. Date of Evaluation: 06/21/21 Physical Therapist: Chinedu Hazel DPT - Visit Plan Frequency: 2x /Week Duration: 4 Weeks Plan: Start with neutral spine core isometrics, progressing as tolerated. Slowly wean from brace starting July 10. Add in HS stretching, light nerve glides as tolerated. No painful movements. - Subjective Pt. is here today for his initial evaluation with diagnosis of B posterior laminectomy L4-S1, B partial facetectomy, and foraminotomies of S1. DOS: 05/26/21. Pt. had pain for a few months prior to surgery. He was having pain down his L leg to his calf prior to surgery, but is no longer painful. He has occasional muscle tightness on the R side of lumbar spine, but not much having issues on the L side. Pt. denies N/T. He is still using is brace in community, but not much at home any more. Pt. reports doing some light exercises at home, but is still attending to no bending, twisting, lifting. Pt. is overall pleased with his surgery. He works at [employer] in maintenance. Pt. is hopeful to get back to work in ~8-12 weeks for surgery. Pt. reports he does not have to return to physician unless he is having increased symptoms. Pt. does have to do more lifting at work and does have some concerns with this. He is hopeful to get back to all recreational and work activities without limitations. - Pain Lumbar spine Pain Intensity (Out of 10): 2 Pain Intensity Range: 0, 4 - Objective POSTURE: Pt. has decent posture in stance. Pt. has slight decrease in lumbar lordosis. Pt. has normal and equal iliac crest heights. PALPATION: Pt. has normal healing incision without issues. pt. has tenderness at bilateral lumbar erector spinae. No pain in BLEs. NEURO: pt. has normal sensation in BLEs, normal DTR of BLEs. Pt is able to rise on heels and toes without issues. ROM: Lumbar spine: flexion mod loss, exte mod loss, rotation mod loss bilat, SB min loss bilat. Pt. has tight in B HS and hip flexors. Pt. has tight IT bands as well. MMT: Pt. has 5-/5 distal BLEs strength, no myotomal weakness noted. Pt. has 4/5 hip strength bilaterally. Core strength fair-. GAIT: Pt. ambulates well without Ad. Pt. had good gait pattern, but is methodical with minima arm swing, normal step length noted. STAIRS: Pt. is able to complte with reciprocal pattern with use of BHR without issues. - Balance/Special Test Scores Oswestry Low Back Score: 21 - Goals Goal 1:: LTG: Pt. to be I with HEP for neutral spine core stability. Goal Time Frame: 4-6 Weeks Goal 2:: STG: Pt. to wean from brace as tolerated without increase in symptoms. Goal Time Frame: 2-4 Weeks Goal 3:: LTG: Pt. have increased lumbar ROM to full without increase in symptoms. Goal Time Frame: 2-4 Weeks Goal 4:: LTG: Pt. to walk 30+ minutes without increase in lumbar symptoms. Goal Time Frame: 4-6 Weeks Goal 5:: LTG: Pt. to have increased core strength and BLE strength to 5/5 without increase in symptoms. Goal Time Frame: 4-6 Weeks - Rehabilitation Potential Physical Therapy Diagnosis: Pt. has signs and symptoms consistent with B posterior laminectomy L4-S1, B partial facetectomy, and foraminotomies of S1. Pt. has marked hypomobility of his lumbar spine, core weakness and difficulty with ADLs and work activities. Pt would benefit from PT to initially work on core stability in neutral spine, progressing as able. Slowly weaning form brace as tolerated. All completed to progress back to work related activities. Rehabilitation Potential: Excellent - Anticipated Interventions Patient/Client Instruction: Educate patient on: Condition, Plan of Care, Risk Factors, Benefits of Fitness Program For the Purpose of:: To foster healthy habits, To improve decision making, To facilitate caregiver knowledge, To improve self management, To prevent re- injury, To improve ability to perform tasks related to life management Therapeutic Exercise to Include: Strength training, Power training, Endurance training, Postural training, Flexibilty training, Gait and locomotor training, Active ROM, Dynamic Lumbar Stabilization For the Purpose of:: To decrease pain, To decrease swelling/inflammation, To increase ROM, To improve nutrient delivery to tissue, To increase oxygenation perfusion, To improve muscle performance and motor function, To improve ability to perform ADL's Cryotherapy (ice pack, ice massage): Yes Thermo therapy (hot pack): Yes For the Purpose of:: To decrease pain, To increase ROM Thank you for the opportunity to evaluate your patient. For Medicare and Medicare HMO plans, please review the plan of care and approve it. It will need to be FAXED BACK to us at [phone] for Medicare purposes. For Medicare only, by signing this I certify the plan of care. Please let me know if there are questions or concerns regarding this plan of care. Physician Signature: Date:
== END 2021-07-31 19:00 | disposition home or self-care (01) ==
LOC: PT 11:00
PROVIDERS: PCP Family Medicine; Referring Provider Nurse Practitioner Acute Care; Visit Provider Nurse Practitioner Acute Care
DX: M51.26 Other intervertebral disc displacement, lumbar region (principal); Z48.89 Encounter for other specified surgical aftercare
CPT/HCPCS: 97110; 97161; 97164

== ENCOUNTER 2022-05-13 08:20 | Emergency (ER) | payer BC, SELFPAY ==
[2022-05-13 08:21] VITALS: BP 159/100; PULSE 88; RESP 16; TEMP 36.1; O2SAT 100; BMI 39.0
--- NOTE | 2022-05-13 08:31 | EKG12_ITS ---
Test Reason : CP Blood Pressure : / mmHG Vent. Rate : 090 BPM Atrial Rate : 090 BPM P-R Int : 148 ms QRS Dur : 088 ms QT Int : 358 ms P-R-T Axes : 083 040 038 degrees QTc Int : 437 ms Sinus rhythm with Premature atrial complexes Otherwise normal ECG Confirmed by TONY PATEL, HAM ([id number]), brands editor ALICIA OBRIEN ([id number]) on 05/14/2022 1:35:46 PM Referred By: ROBE Confirmed By:HAM JIMENEZ MD
--- NOTE | 2022-05-13 08:31 | ED.VIS.CHEST ---
HPI History of Present Illness Chief Complaint: Chest Pain Detail of Chief Complaint: Chest pain Informant: patient Narrative Narrative: Patient presents with chest pain that started this morning around 6 AM. Patient states that he was lying in bed when he developed sharp stabbing pain that he noticed with every heartbeat. Pain radiated through to his back. He is never had discomfort like that before. Denies recent travel or surgery. No history of PE or DVT. Patient denies nausea or vomiting with it. Patient states it lasted a few minutes and is currently resolved. Patient denies fever cough or recent illness. Prior Similar Symptoms: No PFSH PFSH Medical History Chest tightness Dyspnea Fatigue History of anxiety History of hypertension Hypersomnia Home Medications multivitamin 1 tab PO DAILY 01/04/21 [History Last Taken Unknown] Allergy/AdvReac Type Severity Reaction Status Date / Time No Known Allergies Allergy Verified 05/13/22 08:23 Family History Grandmother Breast cancer Father Hypertension Anxiety Grandfather Cancer Surgical History H/O laminectomy Social History Smoking Status: Never smoker alcohol intake: never what type of physical activity do you participate in: walking frequency: daily ROS ROS ED Review of Systems ROS Unobtainable: other Constitutional Constitutional ED: Reports lethargy; Denies chills, fever(s), sweats or weight loss Eyes Eyes: Denies blurry vision, change in vision or diplopia ENT ENT ED: Denies rhinorrhea or sore throat Cardiovascular Cardiovascular: Reports chest pain; Denies orthopnea or racing heartbeat Respiratory/Chest Respiratory/Chest: Denies cough, dyspnea, dyspnea on exertion, orthopnea or sputum Gastrointestinal Gastrointestinal: Denies abdominal pain, diarrhea, nausea or vomiting Genitourinary Genitourinary ED: Denies dysuria, hematuria or urinary frequency Musculoskeletal Musculoskeletal: Denies arthralgias, back pain, myalgias or neck pain Integumentary Denies abscess, Abrasions or rash Neurologic Neurologic: Denies headache(s) or weakness Psychiatric Psychiatric: Denies anxiety, depression or suicidal thoughts Endocrine Endocrinology: Denies polydipsia, polyphagia or polyuria Hematologic/Lymphatic Hematologic/Lymphatic: Denies easy bleeding, easy bruising or lymphadenopathy Allergic/Immunologic Allergic/Immunologic ED: Denies mouth swelling, tongue swelling or urticaria EXAM Physical Exam Const Vital Signs: 05/13/22 08:21 05/13/22 08:28 05/13/22 08:41 Temperature 96.9 F L Temperature Source Temporal Pulse Rate 88 Respiratory Rate 16 Respiratory Effort Normal Non-Labored Blood Pressure 159/100 H Blood Pressure Mean 119 Pulse Ox 100 Oxygen Delivery Method Room Air Room Air 05/13/22 10:36 Temperature Temperature Source Pulse Rate 78 Respiratory Rate 16 Respiratory Effort Blood Pressure 119/91 H Blood Pressure Mean 100 Pulse Ox 97 Oxygen Delivery Method Room Air Positive well nourished and well developed General Appearance ED: well developed and NAD HEENT Reports TM's clear and moist mucous membranes normocephalic and atraumatic; Negative for trauma or tenderness Tympanic Membrane ED: Yes TM's clear Eyes PERRL and EOMs intact bilaterally General Eye ED: Negative for pale conjunctiva or scleral icterus Neck no lymphadenopathy, supple and no JVD General: Negative for tenderness Chest Wall inspection of chest normal and palpation of chest normal Chest: Negative for tenderness Resp normal respiratory effort and clear to auscultation bilaterally Effort and Inspection: Negative for respiratory distress or pain with movement Auscultation: Negative for rhonchi, wheezes or diminished lung sounds Cardio regular rate, regular rhythm, S1 normal heart sound, S2 normal heart sound and no murmurs Peripheral Pulses: pulses 2+ throughout GI normal to inspection, nondistended, normoactive bowel sounds, soft to palpation, non-tender, non-distended and no masses Back/Spine no CVA tenderness and no thoracic nor lumbar tenderness Extremity normal to inspection General Extremety ED: Negative for edema General Extremity: Negative for edema Neuro oriented x3, CN's II-XII intact bilaterally, no sensory deficits noted and gait normal Sensorium / Orientation: awake, alert, oriented to person, oriented to place and oriented to time Motor Exam: strength 5/5 throughout and strength abnormal Psych mental status grossly normal Skin no rashes or lesions noted and no wounds Heart Score History: Slightly/Non-Suspicious ECG: Normal Age: </= 45 years Risk Factors: No Risk Factors Troponin: </= Normal Limit Score: 0 MDM MDM MDM Narrative Medical decision making narrative: IV line established on arrival. Patient had an EKG that showed sinus rhythm with no acute ST segment changes. CBC with differential was normal. Chemistries unremarkable. Troponin was normal at 8. Delta troponin also was normal at 8. D-dimer was less than 0.27. Chest x-ray unremarkable. At this point on repeat evaluation at 11:45 AM he is pain-free. Etiology of his chest pain unclear. Heart score 0. I do not feel he is having acute coronary syndrome. Given normal D-dimer PE ruled out. Patient will be discharged to home and advised to follow-up with primary care physician within next 3 to 5 days. Vies to return if worsening pain, exertional dyspnea, or condition should worsen anyway. Lab Data Attestation: I reviewed the patient's lab results. Labs: Laboratory Results - last 24 hr 05/13/22 05/13/22 05/13/22 08:40 08:40 08:40 WBC 7.2 RBC 5.80 Hgb 16.6 H Hct 49.5 MCV 85.3 MCH 28.6 MCHC 33.5 RDW Std Deviation 39.7 RDW Coeff of Karen 13.0 Plt Count 291 MPV 9.2 Immature Gran % (Auto) 0.400 Neut % (Auto) 56.0 Lymph % (Auto) 32.8 [place] % (Auto) 7.2 Eos % (Auto) 2.9 Baso % (Auto) 0.7 Absolute Neuts (auto) 4.0 Absolute Lymphs (auto) 2.36 Nucleated RBC % 0 D-Dimer Quant (PE/DVT) < 0.27 L Sodium 140 Potassium 3.9 Chloride 105 Carbon Dioxide 30.0 Anion Gap 5 BUN 12 Creatinine 1.00 Estim Creat Clear Calc 108.77 Est GFR (MDRD) Af Amer 109 Est GFR (MDRD) Non-Af 90 BUN/Creatinine Ratio 12.0 Glucose 130 H Calcium 10.1 Troponin I High Sens 8 05/13/22 05/13/22 10:54 10:54 WBC RBC Hgb Hct MCV MCH MCHC RDW Std Deviation RDW Coeff of Karen Plt Count MPV Immature Gran % (Auto) Neut % (Auto) Lymph % (Auto) [place] % (Auto) Eos % (Auto) Baso % (Auto) Absolute Neuts (auto) Absolute Lymphs (auto) Nucleated RBC % D-Dimer Quant (PE/DVT) Sodium Potassium Chloride Carbon Dioxide Anion Gap BUN Creatinine Estim Creat Clear Calc Est GFR (MDRD) Af Amer Est GFR (MDRD) Non-Af BUN/Creatinine Ratio Glucose Calcium Troponin I High Sens Cancelled 8 Radiography Diagnostic Testing: Clinical Impression(s) from Imaging Studies Chest X-Ray 05/13/22 08:44 IMPRESSION: No acute cardiopulmonary abnormality. No interval change. Electronically Signed: Jose Quiroga MD at 9:05 EST , 1 view chest x-ray obtained interpreted by myself as no acute abnormality. There is no evidence of pneumothorax or infiltrate. Radiology was in agreement. EKG Initial EKG: Attestation: I personally reviewed and interpreted this EKG as follows: Comments: Sinus rhythm with a ventricular rate of 90 bpm with occasional PACs otherwise no acute ST segment changes. Discharge Plan Triage Chief Complaint: Chest Pain ED Provider: Ania Nweberry Dx/Rx/DC Orders Clinical Impression: Chest pain Instructions: ED Chest Pain, Uncertain Cause Prescriptions: No Action multivitamin Tablet 1 tab PO DAILY Primary Care Provider: Jorge Trejo Referrals: Jorge Trejo DO [Primary Care Provider] - 3-5 Days Disposition Disposition: Home, Self Care
[2022-05-13] MEDS: Aspirin 81 MG TAB.CHEW 324 MG PO (08:37)
[2022-05-13] MEDS: 0.9% Normal Saline 1,000 ML 150 ML IV (08:39)
--- NOTE | 2022-05-13 08:44 | RAD_ITS ---
EXAM: XR CHEST, 1 VIEW CLINICAL INDICATION: chest pain TECHNIQUE: Frontal view of the chest. This report was created using [employer] report generation technology. COMPARISON: XR Chest dated 02/02/2020 FINDINGS: LUNGS AND PLEURAL SPACES: Normal. No consolidation or edema. No pneumothorax. No effusion. HEART: Normal heart size. MEDIASTINUM: No mediastinal or hilar mass. BONES/JOINTS: No acute abnormality. SOFT TISSUES: Normal. RAD/Chest 1 View (Portable) IMPRESSION: No acute cardiopulmonary abnormality. No interval change. Electronically Signed: Jose Quiroga MD at 9:05 EST ,
[2022-05-13 08:53] LABS: Absolute Lymphocyte Count 2.36 X10^3/uL (0.83-4.51); Basophil# 0.05 X10^3/uL; Basophil% 0.7 % (0-1); Eosinophil# 0.21 X10^3/uL; Eosinophils% 2.9 % (0-5); Hematocrit 49.5 % (40-54); Hemoglobin 16.6 g/dL (13.0-16.5); Lymphocyte # 2.36 X10^3/ul (0.83-4.51); Lymphocyte % 32.8 % (19-41); Mean Corp Hgb Conc 33.5 g/dL (32-36); Mean Corpuscular Hgb 28.6 pg (27.0-32.0); Mean Corpuscular Volume 85.3 fL (80-94); Mean Platelet Vol. 9.2 fl (6.2-12.0); Monocyte# 0.52 X10^3/uL; Monocyte% 7.2 % (0-10); NRBC Flagged by Analyzer 0 % (0-5); Neutrophil # 4.02 X10^3/uL (2.7-7.7); Platelet Count 291 K/mm3 (150-450); RBC Distribution Width SD 39.7 fl (35.1-43.9); White Blood Count 7.2 K/mm3 (4.4-11.0)
[2022-05-13 09:10] LABS: D-Dimer Quantitative (DVT/PE) < 0.27 FEU/ug/m (0.27-0.49)
[2022-05-13 09:11] LABS: Anion Gap 5 (5-15); BUN 12 mg/dL (7-18); Calcium,Total 10.1 mg/dL (8.5-10.1); Chloride 105 mmol/L (98-107); EST Glomerular Filtration Rate 90 mL/min (>60); Est Glom Filt Rate - Afr Amer 109 mL/min (>60); Estimated Creatinine Clearance 108.77 ml/min; Glucose 130 mg/dL (74-106); Potassium 3.9 mmol/L (3.5-5.1); Sodium Level 140 mmol/L (136-145); Troponin-I HS (w/2H Reflex) 8 pg/mL (3.0-78.0)
[2022-05-13 10:36] VITALS: BP 119/91; PULSE 78; RESP 16; O2SAT 97
[2022-05-13 10:47] LABS: Reflex Troponin-HS? (from REC) Y
[2022-05-13 11:29] LABS: Troponin-I HS 8 pg/mL (3.0-78.0)
[2022-05-13 11:51] VITALS: BP 129/85; PULSE 81; O2SAT 98
== END 2022-05-13 11:53 | disposition home or self-care (01) ==
PROVIDERS: Emergency Provider Emergency Medicine; PCP Family Medicine; Visit Provider Emergency Medicine
DX: R07.9 Chest pain, unspecified (principal); M54.9 Dorsalgia, unspecified; I10 Essential (primary) hypertension
CPT/HCPCS: 71045; 80048; 84484; 85025; 85379; 93005; 96360; 96361; 99283; J7030; A4216

== ENCOUNTER → 2023-01-16 | Outpatient (CLI) | payer BC, SELFPAY ==
[2023-01-16 17:37] LABS: Absolute Lymphocyte Count 2.72 X10^3/uL (0.83-4.51); Absolute Neutrophil Count 4.7 X10^3/uL (2.0-7.7); Basophil# 0.05 X10^3/uL; Basophil% 0.6 % (0-1); Eosinophil# 0.28 X10^3/uL; Eosinophils% 3.4 % (0-5); Hematocrit 48.9 % (40-54); Hemoglobin 16.2 g/dL (13.0-16.5); Lymphocyte # 2.72 X10^3/ul (0.83-4.51); Lymphocyte % 33.1 % (19-41); Mean Corp Hgb Conc 33.1 g/dL (32-36); Mean Corpuscular Hgb 28.8 pg (27.0-32.0); Mean Corpuscular Volume 86.9 fL (80-94); Mean Platelet Vol. 10.2 fl (6.2-12.0); Monocyte# 0.49 X10^3/uL; NRBC Flagged by Analyzer 0 % (0-5); Neutrophil # 4.67 X10^3/uL (2.7-7.7); Neutrophil % 56.8 % (47-70); Platelet Count 302 K/mm3 (150-450); RBC Distribution Width CV 13.1 % (11.6-14.6); RBC Distribution Width SD 40.5 fl (35.1-43.9); Red Blood Count 5.63 M/mm3 (4.6-6.2); White Blood Count 8.2 K/mm3 (4.4-11.0)
[2023-01-16 17:54] LABS: ALB/GLOB Ratio 1.1 RATIO (0.9-2.4); AST(SGOT) 29 U/L (15-37); Alanine Aminotransfer ALT/SGPT 54 U/L (16-61); Albumin, Serum 4.3 g/dL (3.2-5.0); Alkaline Phosphatase 81 U/L (45-117); Anion Gap 5 (5-15); BUN 14 mg/dL (7-18); Calcium,Total 9.6 mg/dL (8.5-10.1); Chloride 103 mmol/L (98-107); Cholesterol 170 mg/dL (200); Creatinine, Serum 1.17 mg/dL (0.70-1.30); EST Glomerular Filtration Rate 75 mL/min (>60); Est Glom Filt Rate - Afr Amer 90 mL/min (>60); Glucose 113 mg/dL (74-106); High Density Lipoprotein 40 mg/dL; Protein, Total 8.3 g/dL (6.4-8.2); Sodium Level 138 mmol/L (136-145); Triglycerides 126 mg/dL; Very Low Density Lipoprotein 25 mg/dL (5-40)
== END | disposition home or self-care (01) ==
LOC: BIMLAB 15:37
PROVIDERS: PCP Internal Medicine; Referring Provider Internal Medicine; Visit Provider Internal Medicine
DX: I10 Essential (primary) hypertension (principal)
CPT/HCPCS: 36415; 80053; 80061; 85025

== ENCOUNTER → 2023-05-22 | Outpatient (CLI) | payer BC, SELFPAY | END | disposition home or self-care (01) | LOC: LABSPEC 13:59 | PROVIDERS: PCP Internal Medicine; Visit Provider Physician Assistant | DX: J06.9 Acute upper respiratory infection, unspecified (principal) | CPT/HCPCS: 87502; 87635 ==

== ENCOUNTER → 2023-07-24 | Outpatient (CLI) | payer BC, SELFPAY ==
[2023-07-24 16:53] LABS: Vitamin B12 363 pg/mL (211-911)
[2023-07-24 17:07] LABS: ALB/GLOB Ratio 1.2 RATIO (0.9-2.4); AST(SGOT) 29 U/L (15-37); Alanine Aminotransfer ALT/SGPT 48 U/L (16-61); Albumin, Serum 4.4 g/dL (3.2-5.0); Alkaline Phosphatase 85 U/L (45-117); Anion Gap 5 (5-15); BUN 14 mg/dL (7-18); BUN/Creat Ratio 14.6 RATIO (10-20); Calcium,Total 9.2 mg/dL (8.5-10.1); Chloride 105 mmol/L (98-107); Creatinine, Serum 0.96 mg/dL (0.70-1.30); EST Glomerular Filtration Rate 94 mL/min (>60); Est Glom Filt Rate - Afr Amer 113 mL/min (>60); Globulin 3.6 g/dL (2.2-4.2); Glucose 96 mg/dL (74-106); Potassium 3.6 mmol/L (3.5-5.1); Sodium Level 138 mmol/L (136-145); T4 Free Direct 1.12 ng/dL (0.76-1.46); Thyroid Stim Hormone (TSH) 1.08 uIU/mL (0.358-3.74)
== END | disposition home or self-care (01) ==
LOC: BIMLAB 15:25
PROVIDERS: PCP Internal Medicine; Visit Provider Internal Medicine
DX: F41.1 Generalized anxiety disorder (principal); I10 Essential (primary) hypertension
CPT/HCPCS: 36415; 80053; 82607; 84439; 84443

== ENCOUNTER → 2024-04-02 | Outpatient (CLI) | payer BC, SELFPAY ==
[2024-04-02 16:46] LABS: Absolute Lymphocyte Count 2.49 X10^3/uL (0.83-4.51); Absolute Neutrophil Count 4.4 X10^3/uL (2.0-7.7); Basophil# 0.05 X10^3/uL; Basophil% 0.6 % (0-1); Eosinophil# 0.22 X10^3/uL; Eosinophils% 2.9 % (0-5); Hematocrit 44.8 % (40-54); Hemoglobin 15.5 g/dL (13.0-16.5); Lymphocyte # 2.49 X10^3/ul (0.83-4.51); Lymphocyte % 32.3 % (19-41); Mean Corp Hgb Conc 34.6 g/dL (32-36); Mean Corpuscular Hgb 29.2 pg (27.0-32.0); Mean Corpuscular Volume 84.5 fL (80-94); Mean Platelet Vol. 9.7 fl (6.2-12.0); Monocyte% 6.5 % (0-10); NRBC Flagged by Analyzer 0 % (0-5); Neutrophil # 4.42 X10^3/uL (2.7-7.7); Neutrophil % 57.4 % (47-70); Platelet Count 303 K/mm3 (150-450); RBC Distribution Width CV 12.8 % (11.6-14.6); RBC Distribution Width SD 39.2 fl (35.1-43.9); White Blood Count 7.7 K/mm3 (4.4-11.0)
[2024-04-02 17:02] LABS: ALB/GLOB Ratio 1.3 RATIO (0.9-2.4); AST(SGOT) 36 U/L (15-37); Alanine Aminotransfer ALT/SGPT 54 U/L (16-61); Albumin, Serum 4.4 g/dL (3.2-5.0); Alkaline Phosphatase 79 U/L (45-117); Anion Gap 5 (5-15); BUN 17 mg/dL (7-18); BUN/Creat Ratio 18.9 RATIO (10-20); Calcium,Total 9.5 mg/dL (8.5-10.1); Chloride 102 mmol/L (98-107); Cholesterol 195 mg/dL (200); EST Glomerular Filtration Rate 100 mL/min (>60); Est Glom Filt Rate - Afr Amer 121 mL/min (>60); Globulin 3.5 g/dL (2.2-4.2); Glucose 106 mg/dL (74-106); High Density Lipoprotein 38 mg/dL; Potassium 3.8 mmol/L (3.5-5.1); Protein, Total 7.9 g/dL (6.4-8.2); Sodium Level 137 mmol/L (136-145); Triglycerides 121 mg/dL; Very Low Density Lipoprotein 24 mg/dL (5-40)
== END | disposition home or self-care (01) ==
LOC: BIMLAB 15:24
PROVIDERS: PCP Internal Medicine; Referring Provider Internal Medicine; Visit Provider Internal Medicine
DX: I10 Essential (primary) hypertension (principal)
CPT/HCPCS: 36415; 80053; 80061; 85025

== ENCOUNTER 2024-04-13 17:39 | Outpatient (RCR) | payer BC, SELFPAY ==
--- NOTE | 2024-04-13 19:15 | HP.PTEVAL_ITS ---
Patient's Visit Information Visit Information Visit Information: ELIJAH DONALDSON is a 39 year old M referred to Physical Therapy by Dr. Jeanette Echeverria MD with a diagnosis of PAIN IN LEFT SHOULDER ,CHRONIC PAIN. Date of Evaluation: 04/13/24 Physical Therapist: Wes Parham, PT, Cert MDT, OCS Visit Plan Frequency: 2x /Week Duration: 4 Weeks Plan: LONG HEAD BICEP DYSFUNCTION WITH PAIN PT INTERVENTIONS POSTURAL EX'S ,RTC/SCAPULAR STRENGTHENING,ACTIVITY MODIFICATION AND MODALITIES Subjective Subjective: This 39 y/o male presents to physical therapy with left shoulder pain . Patient has shoulder pain for 4 months . Patient developed shoulder pain reaching and felt sharp pain. Seen DR recommend PT and anti-inflammatory. No imaging. Patient pain located global anterior posterior. Described as sharp pain . Denies paresthesia/tingling. Aggravating factors raising arm OH ,lifting reaching. Alleviating factors rest. Patient pain affects sleeps . Patient symptoms affects sleeping . Patient condition affects QOL and function/job demands. Patient goals to decrease pain, VOCATION: [employer] SOCIAL: Pain Left: Pain Intensity (Out of 10): 3 Pain Intensity Range: 10 Left Shoulder: Pain Intensity (Out of 10): 3 Pain Intensity Range: 10 Objective Objective: POSTURE: mild forward posture PALATION: tender AC NEURO: denies paresthesia/tingling AROM: shoulder flexion 150 ,abduction 150 degrees ,ER 90 ,IR IR T10 MMT:( peak force) infraspinatus 24.9 ,supraspinatus 23,8 ,deltoid 25.8 Special Tests R Shoulder Drop Sign - IS Test: Negative R Shoulder Empty Can - SS: Positive R Shoulder Belly Press - SupScap: Negative R Shoulder Neer - Impingement: Positive R Shoulder Moore Vance - Impingement: Positive R Shoulder Speeds Test - Labrum/Biceps: Positive R Shoulder O'Briens - SLAP/A-C: Positive Balance/Special Test Scores Quick DASH Score: 25.0000 Goals Goal 1:: Patient to demonstrate HEP for shoulder Goal Time Frame: 4-6 Weeks Goal 2:: Patient to improve quick dash by 5 point to improVE QOL and function Goal Time Frame: 4-6 Weeks Goal 3:: Patient to improve peak force RTC and deltoid by 5# to improve function with less pain Goal Time Frame: 4-6 Weeks Goal 4:: Patient to demonstrated 50% improvement with decrease pain and improved function Goal 5:: Patient be able to perform ADLS and housework tasks/job demands to improve Goal Time Frame: 4-6 Weeks Rehabilitation Potential Physical Therapy Diagnosis: Patient has left shoulder pain with possible long head bicep with + test with pain along with weakness RTC impairs ADL's and functional tasks above 90 degrees thus benefit from skilled PT Rehabilitation Potential: Good Anticipated Interventions Patient/Client Instruction: Educate patient on: Condition and Plan of Care For the Purpose of:: To decrease pain, To increase ROM, To improve muscle performance and motor function, To improve ability to perform ADL's, To increase tolerance to activity/condition/position, To improve ability of physical actions for home/community/work/leisure, To improve health of tissue, To decrease soft tissue restriction and To increase flexibility/ROM Therapeutic Exercise to Include: Strength training, Postural training, Flexibilty training and Active ROM Comment: RTC For the Purpose of:: To decrease pain, To increase ROM, To improve muscle performance and motor function, To improve ability to perform ADL's, To increase tolerance to activity/condition/position, To improve ability of physical actions for home/community/work/leisure, To improve health of tissue, To decrease soft tissue restriction, To increase flexibility/ROM, To improve balance, To reduce risk of recurrence and To prevent re-injury TENS: Yes IF ES: Yes Cryotherapy (ice pack, ice massage): Yes Thermo therapy (hot pack): Yes Ultrasound (thermal/non thermal): Yes For the Purpose of:: To decrease pain, To improve muscle performance and motor function, To increase tolerance to activity/condition/position, To improve ability of physical actions for home/community/work/leisure, To improve gait and locomotor functions, To increase flexibility/ROM, To prevent re-injury and To improve tolerance to ADL's Text: Thank you for the opportunity to evaluate your patient. For Medicare and Medicare HMO plans, please review the plan of care and approve it. It will need to be FAXED BACK to us at [phone] for Medicare purposes. For Medicare only, by signing this I certify the plan of care. Please let me know if there are questions or concerns regarding this plan of care. Physician Signature: Date:
--- NOTE | 2024-07-29 08:49 | HP.PT.NRP ---
Patient Information Patient Information: ELIJAH DONALDSON was seen in my office for initial evaluation on 04/13/24. The following Plan of Care was established for this patient: POC Established Initial Frequency: 2x /Week Initial Duration: 4 Weeks Anticipated Interventions Patient/Client Instruction: Educate patient on: Condition and Plan of Care For the Purpose of:: To decrease pain, To increase ROM, To improve muscle performance and motor function, To improve ability to perform ADL's, To increase tolerance to activity/condition/position, To improve ability of physical actions for home/community/work/leisure, To improve health of tissue, To decrease soft tissue restriction and To increase flexibility/ROM Therapeutic Exercise to Include: Strength training, Postural training, Flexibilty training and Active ROM For the Purpose of:: To decrease pain, To increase ROM, To improve muscle performance and motor function, To improve ability to perform ADL's, To increase tolerance to activity/condition/position, To improve ability of physical actions for home/community/work/leisure, To improve health of tissue, To decrease soft tissue restriction, To increase flexibility/ROM, To improve balance, To reduce risk of recurrence and To prevent re-injury TENS: Yes IF ES: Yes Cryotherapy (ice pack, ice massage): Yes Thermo therapy (hot pack): Yes Ultrasound (thermal/non thermal): Yes For the Purpose of:: To decrease pain, To improve muscle performance and motor function, To increase tolerance to activity/condition/position, To improve ability of physical actions for home/community/work/leisure, To improve gait and locomotor functions, To increase flexibility/ROM, To prevent re-injury and To improve tolerance to ADL's Last Seen Last Seen: This patient was last seen in our office . Pertinent comments regarding their Physical therapy will appear below: Patient seen for PT for shoulder pain with HEP At this point I will be discontinuing this patient from physical therapy. I would be happy to see this patient again in the future if found appropriate by the physician. Thank you! Wes Parham, PT, Cert MDT, OCS Balance/Gait/Functional tests Balance/Special Test Scores Quick DASH Score: 25.0000
== END 2024-04-13 19:00 | disposition home or self-care (01) ==
LOC: PT 17:39
PROVIDERS: PCP Internal Medicine; Referring Provider Internal Medicine; Visit Provider Internal Medicine
DX: M25.512 Pain in left shoulder (principal); G89.29 Other chronic pain
CPT/HCPCS: 97110; 97161

== ENCOUNTER → 2024-04-24 | Outpatient (CLI) | payer BC, SELFPAY ==
--- NOTE | 2024-04-24 15:50 | RAD_ITS ---
PROCEDURE: SHOULDER MIN 2 VIEWS REASON FOR EXAM: Left shoulder pain. TECHNIQUE: Four view left shoulder series. COMPARISON: None. RAD/Shoulder min 2 Views IMPRESSION: Mild degenerative changes are seen of the left acromioclavicular joint. The left glenohumeral joint is unremarkable in appearance. No fracture or dislocation is seen. Reading Location: [id number]
== END | disposition home or self-care (01) ==
LOC: MTRAD 15:46
PROVIDERS: PCP Internal Medicine; Referring Provider Internal Medicine; Visit Provider Internal Medicine
DX: M25.512 Pain in left shoulder (principal)
CPT/HCPCS: 73030

== ENCOUNTER → 2024-05-05 | Outpatient (CLI) | payer BC, SELFPAY | END | disposition home or self-care (01) | LOC: SL 09:30 | PROVIDERS: PCP Internal Medicine; Referring Provider Nurse Practitioner Family; Visit Provider Nurse Practitioner Family | DX: G47.33 Obstructive sleep apnea (adult) (pediatric) (principal) ==